=== PATIENT | male | born 1950 | race African-American/Black ===

== ENCOUNTER 2021-08-10 08:32 | Outpatient (CLI) | payer OTHER | END 2021-08-10 08:33 | disposition home or self-care (01) | LOC: CSHRAD 08:32 | PROVIDERS: ATTEND Chiropractor | DX: M19.90 Unspecified osteoarthritis, unspecified site (principal); M47.812 Spondylosis without myelopathy or radiculopathy, cervical region | CPT/HCPCS: 72040 ==